=== PATIENT | male | born 1990 | race Caucasian/White ===

== ENCOUNTER 2018-07-02 15:03 | Emergency (ER) | payer OTHER ==
[~2018-07-02] VITALS: Ht 167.6 cm; Wt 122.0 kg
[2018-07-02 15:15] VITALS: BP 154/87; Ht 167.6 cm; Wt 122.0 kg
== END 2018-07-02 17:41 | disposition home or self-care (01) ==
LOC: ED 15:03
DX: G62.9 Polyneuropathy, unspecified (principal); S67.22XA Crushing injury of left hand, initial encounter; S40.812A Abrasion of left upper arm, initial encounter; W23.0XXA Caught, crushed, jammed, or pinched between moving objects, initial encounter; Y93.89 Activity, other specified; Y92.89 Other specified places as the place of occurrence of the external cause; Y99.8 Other external cause status
CPT/HCPCS: 90715